=== PATIENT | female | born 1980 | race Caucasian/White ===

== ENCOUNTER 2017-05-07 15:54 | Observation (INO) | payer OTHER ==
[~2017-05-07] VITALS: Ht 157.5 cm; Wt 97.5 kg
[~2017-05-07 15:54] MED LIST: ADVIN10/60 INH; ALBU1AER9 INH; ALL180 PO; DPPI400; EPP3 IM; FLXHP PO; GABA1CAP4 PO; HYOS1TAB SL; MELO15TA4 PO; SUMA50TA15 PO; ULT50HP PO; [UNRECOGNIZED DRUG - CODE] OPB
[2017-05-07] MEDS ORDERED: SODIUM CHLORIDE 0.9% 1000ML 1,000 ML IV STA (16:15)
[2017-05-07] MEDS ORDERED: HYDROmorphone INJ 1 MG/ML SYR IV STA (16:15)
[2017-05-07] MEDS ORDERED: ONDANSETRON INJ 2 MG/ML 2 ML VIAL IV STA (16:15)
[2017-05-07] MEDS ORDERED: ADVIN10/60 INH (16:45)
[2017-05-07] MEDS ORDERED: EPP3/2 IM (16:45)
[2017-05-07] MEDS ORDERED: ALBU18002 INH (16:45)
[2017-05-07 17:05] LABS: URINE APPEARANCE TURBID (CLEAR); URINE COLOR DK YELLOW; URINE EPITHELIAL CELL AUTO >30 /lpf (0-5); URINE NITRITE NEG (NEG); URINE SPECIFIC GRAVITY 1.034 (1.000-1.030); UROBILINOGEN NEG (NEG); ZZUR CULT IF INDIC CLEAN CATCH YES
[2017-05-07 17:07] LABS: MANUAL MICROSCOPIC REQUIRED? NO; REVIEW REQ? YES
[2017-05-07 17:09] LABS: URINE BILIRUBIN NEG (NEG)
[2017-05-07 17:09] LABS: BASO % 0.1 %; BASO ABS # 0.02 K/uL (0-0.2); COMPLETE YES; EOS % 0.5 %; HEMATOCRIT 47.7 % (37-47); IG% 0.3 %; LYMPH % 14.8 %; LYMPH ABS # 2.04 K/uL (1.2-3.4); MEAN CORPUSCULAR HEMOGLOBIN 30.4 pg (25-34); MEAN CORPUSCULAR HGB CONC 34.2 g/dl (32-36); MEAN PLATELET VOLUME 8.7 fL (7.4-10.4); MONO % 7.8 %; NEUT % 76.5 %; PLATELET COUNT 312 K/uL (130-400); RED BLOOD COUNT 5.36 M/uL (4.2-5.4)
[2017-05-07 17:31] LABS: BUN/CREATININE RATIO 10.9 (10-20); CALCIUM 9.3 mg/dl (8.5-10.1); CREATININE 0.76 mg/dl (0.60-1.20); POTASSIUM 3.5 mmol/L (3.5-5.1)
[2017-05-07 17:33] LABS: ALB/GLOB RATIO 0.7 (0.9-2)
--- NOTE | 2017-05-07 18:13 | EMERGENCY ROOM VISIT NOTE ---
History First contact with patient: 16:05 Chief Complaint: ABDOMINAL PAIN Stated Complaint: ABDOMINAL PAIN Nursing Triage Summary: low grade temp and rlq pain for 2 days History of Present Illness The patient is a 37 year old female who presents to the Emergency Room with complaints of abdominal pain 2 days. The patient states that she has had pain in the right side of her abdomen for the past 2 days. She states the pain has been gradually worsening. She rates the discomfort a 9/10. She has been taking Tylenol without relief. The patient has not noticed fevers at home, but was told at urgent care that she did have a fever. She was seen there prior to coming here and instructed to come here for further evaluation. She reports a history of a cholecystectomy but denies other abdominal surgery. She denies nausea/vomiting, urinary symptoms or changes in bowel movements. She denies melena, hematochezia, chest pain or shortness of breath. Review of Systems A complete 10 point review of systems was reviewed with the patient with pertinent positives and negatives as per history of present illness. All else were negative. Past Medical/Surgical History Medical Problems: (1) Appendicitis Social History Smoking Status: Never Smoker Housing Status: lives with family Occupation Status: employed Current/Historical Medications Scheduled PRN Albuterol Sulfate (Proair Respiclick), 2 PUFFS INH Q4H PRN for SOB/Wheezing Epinephrine (Epipen), 0.3 MG IM UD PRN for ALLERGIC REACTION Fluticasone Prop/Salmeterol (Advair Diskus 100/50 60 Dose), 1 PUFF INH BID PRN for SOB/Wheezing Hydrocodone/Acetaminophen 5MG/325MG ([place] 5MG/325MG), 1-2 TABLET PO Q4H PRN for Pain Allergies Coded Allergies: Morphine (Verified Allergy, Intermediate, Skin feels like its crawling, ) BEE STING (Verified Allergy, Unknown, ., 02/27/11) Benzonatate (Verified Allergy, Unknown, ., 02/27/11) Physical Exam Vital Signs Date Time Temp Pulse Resp B/P (MAP) Pulse Ox O2 Delivery O2 Flow Rate FiO2 05/07/17 23:10 100 14 144/97 95 Oxymask 3 05/07/17 23:00 97 14 142/109 93 Oxymask 3 05/07/17 22:50 36.4 90 14 167/112 93 Oxymask 3 05/07/17 22:40 84 16 168/109 93 Oxymask 3 05/07/17 22:30 82 14 168/106 93 Oxymask 3 05/07/17 22:20 95 16 170/115 95 Oxymask 5 05/07/17 22:10 96 16 176/118 94 Oxymask 5 05/07/17 22:03 36.6 108 20 174/112 96 Oxymask 10 05/07/17 20:25 120 18 150/116 95 Room Air 05/07/17 18:21 106 17 159/106 94 Room Air 05/07/17 15:58 37.2 140 20 211/147 96 Room Air Physical Exam VITALS: Vitals are noted on the nurse's note and reviewed by myself. Vital signs stable. GENERAL: This is a 37-year-old female, in no acute distress, nondiaphoretic, well-developed well-nourished. HEENT: Normocephalic. PERRLA. EOMI. Mucous membranes moist. Neck is supple without nuchal rigidity. HEART: Regular rate and rhythm without murmurs gallops or rubs. LUNGS: Clear to auscultation bilaterally without wheezes, rales or rhonchi. ABDOMEN: Positive bowel sounds x 4. Soft, mild tenderness in the right upper quadrant and right lower quadrant. No guarding or rebound tenderness. NEURO: Patient was alert and oriented to person place and time. Medical Decision & Procedures ER Provider Diagnostic Interpretation: CT OF THE ABDOMEN AND PELVIS WITH CONTRAST CLINICAL HISTORY: Right-sided abdominal pain. FINDINGS: Fatty infiltration of the liver is noted. The spleen, adrenal glands, kidneys and pancreas are unremarkable. There is no hydronephrosis. There is no biliary ductal dilatation status post cholecystectomy. There is no evidence for a bowel obstruction. The appendix is mildly dilated, measuring 1 cm. There is moderate periappendiceal infiltration. There is no free air or abscess. A dominant follicle within left ovary is incidentally noted. No suspicious skeletal lesions are present. There is no lymphadenopathy. There is no pneumatosis, free air or portal venous gas. There is borderline cardiomegaly. IMPRESSION: 1. Acute appendicitis. No free air or abscess. 2. Fatty liver. 3. Borderline cardiomegaly. Laboratory Results 05/07/17 16:58 Red Blood Count 5.36, Mean Corpuscular Volume 89.0, Mean Corpuscular Hemoglobin 30.4, Mean Corpuscular Hemoglobin Concent 34.2, Mean Platelet Volume 8.7, Neutrophils (%) (Auto) 76.5, Lymphocytes (%) (Auto) 14.8, Monocytes (%) (Auto) 7.8, Eosinophils (%) (Auto) 0.5, Basophils (%) (Auto) 0.1, Neutrophils # (Auto) 10.56, Lymphocytes # (Auto) 2.04, Monocytes # (Auto) 1.07, Eosinophils # (Auto) 0.07, Basophils # (Auto) 0.02 05/07/17 16:58 Test 05/07/17 16:40 05/07/17 16:58 Urine Color DK YELLOW Urine Appearance TURBID (CLEAR) Urine pH 5.0 (4.5-7.5) Urine Specific [place] 1.034 (1.000-1.030) Urine Protein 2+ (NEG) Urine Glucose (UA) NEG (NEG) Urine Ketones 1+ (NEG) Urine Occult Blood 1+ (NEG) Urine Nitrite NEG (NEG) Urine Bilirubin NEG (NEG) Urine Urobilinogen NEG (NEG) Urine Leukocyte Esterase SMALL (NEG) Urine WBC (Auto) >30 /hpf (0-5) Urine RBC (Auto) 0-4 /hpf (0-4) Urine Hyaline Casts (Auto) 5-10 /lpf (0-5) Urine Epithelial Cells (Auto) >30 /lpf (0-5) Urine Bacteria (Auto) 3+ (NEG) Urine Crystals CALCIUM OXALATE (NONE Urine Pathogenic Casts /lpf (0) Urine Yeast (Auto) PRESENT (NONE PRSENT) Urine Test NEG (NEG) White Blood Count 13.80 K/uL (4.8-10.8) Red Blood Count 5.36 M/uL (4.2-5.4) Hemoglobin 16.3 g/dL (12.0-16.0) Hematocrit 47.7 % (37-47) Mean Corpuscular Volume 89.0 fL (80-100) Mean Corpuscular Hemoglobin 30.4 pg (25-34) Mean Corpuscular Hemoglobin Concent 34.2 g/dl (32-36) Platelet Count 312 K/uL (130-400) Mean Platelet Volume 8.7 fL (7.4-10.4) Neutrophils (%) (Auto) 76.5 % Lymphocytes (%) (Auto) 14.8 % Monocytes (%) (Auto) 7.8 % Eosinophils (%) (Auto) 0.5 % Basophils (%) (Auto) 0.1 % Neutrophils # (Auto) 10.56 K/uL (1.4-6.5) Lymphocytes # (Auto) 2.04 K/uL (1.2-3.4) Monocytes # (Auto) 1.07 K/uL (0.11-0.59) Eosinophils # (Auto) 0.07 K/uL (0-0.5) Basophils # (Auto) 0.02 K/uL (0-0.2) RDW Standard Deviation 41.9 fL (36.4-46.3) RDW Coefficient of Variation 12.9 % (11.5-14.5) Immature Granulocyte % (Auto) 0.3 % Immature Granulocyte # (Auto) 0.04 K/uL (0.00-0.02) Anion Gap 7.0 mmol/L (3-11) Est Creatinine Clear Calc Drug Dose 112.7 ml/min Estimated GFR () 117.8 Estimated GFR (Non- 101.6 BUN/Creatinine Ratio 10.9 (10-20) Calcium Level 9.3 mg/dl (8.5-10.1) Total Bilirubin 1.5 mg/dl (0.2-1) Aspartate Amino Transf (AST/SGOT) 18 U/L (15-37) Alanine Aminotransferase (ALT/SGPT) 43 U/L (12-78) Alkaline Phosphatase 112 U/L (45-117) Total Protein 8.4 gm/dl (6.4-8.2) Albumin 3.6 gm/dl (3.4-5.0) Globulin 4.8 gm/dl (2.5-4.0) Albumin/Globulin Ratio 0.7 (0.9-2) Lipase 107 U/L (73-393) Medications Administered Medications (Trade) Dose Ordered Sig/Kathy Route Start Time Stop Time Status Last Admin Dose Admin Sodium Chloride 1,000 ml @ 999 mls/hr Q1H1M STAT IV 05/07/17 16:15 05/07/17 17:15 DC 05/07/17 17:18 999 MLS/HR Ondansetron HCl (Zofran Inj) 4 mg NOW STAT IV 05/07/17 16:15 05/07/17 16:18 DC 05/07/17 17:18 4 MG Hydromorphone HCl (Dilaudid Inj) 1 mg NOW STAT IV 05/07/17 16:15 05/07/17 16:18 DC 05/07/17 17:19 1 MG Bupivacaine HCl/ Epinephrine Bitart (Sensorcaine/ Epinephrine 0.5% Mpf 1:200,000) 30 ml STK-MED ONCE .ROUTE 05/07/17 20:52 05/07/17 20:53 DC 05/07/17 20:52 10 ML Hydralazine HCl (HydrALAZINE INJ) 20 mg STK-MED ONCE .ROUTE 05/07/17 22:39 05/07/17 22:40 DC 05/07/17 22:40 10 MG ED Course The patient was evaluated as above. Labs were drawn and IV access was obtained. Patient was medicated with 1 L normal saline solution, 1 mg Dilaudid and [address] of the abdomen and pelvis was performed and read by radiology as above. Patient was reevaluated and findings were discussed. Case was discussed with Dr. De Jesus, the on-call general surgeon. He will take the patient to the OR. Discharge instructions were reviewed with the patient. The patient verbalized understanding of my assessment and treatment plan and was discharged home in good condition. Medical Decision Differential diagnosis includes appendicitis, cholecystitis, gastroenteritis, colitis, ovarian cyst, ovarian torsion, among others. The patient is a 37-year-old female who presents today complaining of right lower quadrant pain. Labs revealed a leukocytosis of 13.8. Urinalysis was suggestive of contamination versus infection and will be sent for culture. Urine was negative. CT of the abdomen and pelvis shows acute appendicitis without complications. Gen. surgery was consulted. Dr. De Jesus will take the patient to the operating room. Medication reconciliation: I attest that I have personally reviewed the patient 's current medication list. Blood Pressure Screening: Patient was found to have a slightly elevated blood pressure due to circumstances. I do not believe that the patient requires hypertension monitoring. Impression Primary Impression: Acute appendicitis Departure Information Prescriptions Hydrocodone/Acetaminophen 5MG/325MG ([place] 5MG/325MG) Tab 1-2 TABLET PO Q4H Y for Pain, #30 TAB Prov: Jagdeep De Jesus D.O. 05/07/17 Referrals Oseas Wooten M.D. (PCP) Patient Instructions My [facility] Problem Qualifiers Primary Impression: Acute appendicitis
[2017-05-07] MEDS ORDERED: OPTIRAY 320 IV PRN (19:00)
--- NOTE | 2017-05-07 19:06 | DIAGNOSTIC IMAGING REPORT ---
CT OF THE ABDOMEN AND PELVIS WITH CONTRAST CLINICAL HISTORY: Right-sided abdominal pain. COMPARISON STUDY: Right upper quadrant ultrasound January 20, 2011. TECHNIQUE: Following IV administration of 118 mL of Optiray-320, axial images of the abdomen and pelvis were obtained from the lung bases to the proximal femurs. Images were reviewed in the axial, sagittal, and coronal planes. IV contrast was administered without complication. A dose lowering technique was utilized adhering to the principles of ALARA. CT DOSE: 1543.09 mGy.cm FINDINGS: Fatty infiltration of the liver is noted. The spleen, adrenal glands, kidneys and pancreas are unremarkable. There is no hydronephrosis. There is no biliary ductal dilatation status post cholecystectomy. There is no evidence for a bowel obstruction. The appendix is mildly dilated, measuring 1 cm. There is moderate periappendiceal infiltration. There is no free air or abscess. A dominant follicle within left ovary is incidentally noted. No suspicious skeletal lesions are present. There is no lymphadenopathy. There is no pneumatosis, free air or portal venous gas. There is borderline cardiomegaly. IMPRESSION: 1. Acute appendicitis. No free air or abscess. 2. Fatty liver. 3. Borderline cardiomegaly. Electronically signed by: Dario Ramirez M.D. 05/07/2017 7:04 PM Dictated Date/Time: 05/07/2017 6:58 PM
[2017-05-07] MEDS ORDERED: HYDROmorphone INJ 2 MG/ML SYR/VIAL IV PRN (20:00)
[2017-05-07] MEDS ORDERED: LABETALOL HCL IV 5 MG/ML 20ML IV PRN (20:00)
[2017-05-07] MEDS ORDERED: ATROPINE SULFATE 0.1 MG/ML 5ML SYR IV PRN (20:00)
[2017-05-07] MEDS ORDERED: NALOXONE HCL 0.4 MG/1 ML VIAL/CARP IV PRN (20:00)
[2017-05-07] MEDS ORDERED: MEPERIDINE HCL 25 MG/ML CARP IV PRN (20:00)
[2017-05-07] MEDS ORDERED: EpHEDrine SULFATE INJ 50 MG/ML AMP IV PRN (20:00)
[2017-05-07] MEDS ORDERED: ONDANSETRON INJ 2 MG/ML 2 ML VIAL IV PRN ×2 (20:00→21:45)
[2017-05-07] MEDS ORDERED: FENTANYL CITRATE INJ 50 MCG/1 ML 2 ML VIAL IV PRN (20:00)
[2017-05-07] MEDS ORDERED: FLUMAZENIL 0.1 MG/1 ML 10 ML VIAL IV PRN (20:00)
[2017-05-07] MEDS ORDERED: PHENYLEPHRINE 100MCG/ML 5ML SYR IV PRN (20:00)
--- NOTE | 2017-05-07 20:02 | History and Physical ---
History & Physical Date May 07, 2017. Chief Complaint pt with abdominal pain for approx 24 hours. progressed to RLQ. History of Present Illness The patient is a 37 year old female with complaints of Past Medical/Surgical History karl ; arm fracture Additional History Hepatic Disease: No Endocrine Disorder: No Kidney Disease: No Hypertension: No Heart Disease: No Bleeding Tendencies: No Infectious Diseases: No Allergies Coded Allergies: Morphine (Verified Allergy, Intermediate, Skin feels like its crawling, ) BEE STING (Verified Allergy, Unknown, ., 02/27/11) Benzonatate (Verified Allergy, Unknown, ., 02/27/11) Home Medications Scheduled PRN Albuterol Sulfate (Proair Respiclick), 2 PUFFS INH Q4H PRN for SOB/Wheezing Epinephrine (Epipen), 0.3 MG IM UD PRN for ALLERGIC REACTION Fluticasone Prop/Salmeterol (Advair Diskus 100/50 60 Dose), 1 PUFF INH BID PRN for SOB/Wheezing Physical Examination Skin: warm/dry Eyes: normal inspection, EOMI ENT: normal ENT inspection Head: normocephalic Neck: supple Respiratory/Chest: normal breath sounds, no respiratory distress Cardiovascular: regular rate, rhythm Abdomen / GI: + pertinent finding (+RLQ pain with rebound and guarding) Neurologic/Psych: alert, oriented x 3 Diagnosis acute appendicitis discussed risks ( bleeding/infection/blood clots/injury to other organs etc...) answered questions. to OR tonevan for lap appy.
[2017-05-07] MEDS ORDERED: FENTANYL CITRATE INJ 50 MCG/1 ML 2 ML VIAL ONE ×2 (20:29→21:08)
[2017-05-07] MEDS ORDERED: MIDAZOLAM HCL 1 MG/ML 2ML VIAL ONE (20:29)
[2017-05-07] MEDS ORDERED: HYDR-5688 PO (20:47)
[2017-05-07] MEDS ORDERED: BUPIVACAINE/EPINEPHRINE 0.5% MPF 1:200,000 10 ML VIAL ONE (20:52)
[2017-05-07] MEDS ORDERED: ESMOLOL HCL 10 MG/ML 10 ML VIAL ONE (21:10)
[2017-05-07] MEDS ORDERED: SUCCINYLCHOLINE CHLORIDE 20 MG/ML 10 ML VIAL IV ONE (21:11)
[2017-05-07] MEDS ORDERED: ROCURONIUM BROMIDE 10 MG/ML 5 ML VIAL ONE (21:11)
[2017-05-07] MEDS ORDERED: PROPOFOL IV EMULSION 10 MG/ML 20 ML VIAL IV ONE (21:11)
[2017-05-07] MEDS ORDERED: NEOSTIGMINE METHYLSULFATE 5 MG/5 ML SYR ONE (21:11)
[2017-05-07] MEDS ORDERED: GLYCOPYRROLATE INJ 0.2 MG/ML VIAL ONE ×2 (21:11→21:24)
[2017-05-07] MEDS ORDERED: LIDOCAINE HCL 2% 2 ML VIAL (20MG/ML) ONE (21:11)
[2017-05-07] MEDS ORDERED: KETOROLAC TROMETHAMINE 30 MG/ML VIAL ONE (21:23)
[2017-05-07] MEDS ORDERED: HYDROmorphone INJ 0.5 MG/0.5 ML SYR IV PRN (21:45)
[2017-05-07] MEDS ORDERED: IBUPROFEN 600 MG TAB PO PRN (21:45)
[2017-05-07] MEDS ORDERED: HYDROCODONE/ACETAMOPHEN 5/325MG TAB PO PRN ×2 (21:45)
[2017-05-07] MEDS ORDERED: HYDROmorphone INJ 1 MG/ML SYR IV PRN (21:45)
--- NOTE | 2017-05-07 21:55 | [facility] Operative Report ---
Operative Report Operative Date May 07, 2017. Pre-Operative Diagnosis Acute Appendicitis Post-Operative Diagnosis Acute Appendicitis Procedure(s) Performed Laparoscopic Appendectomy Surgeon Dr. De Jesus Estimated Blood Loss 10ml Findings acutely inflammed appendix Specimens A. Appendix Anesthesia get Disposition Recovery Room / PACU Description of Procedure After informed consent was obtained the patient was taken to the operating suite placed in a supine position. After successful intubation the abdomen was sterilely prepped and draped in usual fashion. An infraumbilical incision was made with an 11 blade scalpel and carried down through the soft tissue using electrocautery. The anterior rectus fascia was opened using electrocautery and 2 #0 Vicryl stay sutures were placed. Peritoneum was elevated with hemostats and incised under direct vision using a Metzenbaum scissor. A finger sweep was performed and a 12 mm [place] trocar was placed. The abdomen and was insufflated to 20 mmHg. The Laparoscope was inserted and the abdomen examined 360. We placed a suprapubic 5 mm port and a left lower quadrant 12 mm port. The patient was placed in a slight Trendelenburg position and airplaned to the left. We looked in the right lower quadrant and immediately found an acutely inflamed appendix. There was no evidence of perforation no free fluid etc. I was able to peel it away from the right pelvic side wall and elevated it. A [place] dissector was used to create a small window in the meso- appendix and a ELI purple cartridge linear stapler was used to transect the appendix at its junction with the cecum. In similar fashion a 60 mm truong cartridge was then used to transect the meso- appendix. We thoroughly irrigated the right lower quadrant as well as the pelvis. There was adequate hemostasis at the end of the procedure. We did look around the remainder of the abdomen. I counted backwards on the small bowel for about 3-4 feet from the ileocecal valve and saw no gross abnormality. The remainder the organs appeared normal as well. The appendix was placed into an Endo Catch bag and removed from the camera port site. All the trochars were subsequently removed and the abdomen desufflated. The fascia of the camera port was closed using 0 Vicryl in a [id number] fashion. All the wounds were irrigated and closed using 4-0 Monocryl. Marcaine was injected around the incisions for postoperative analgesia and skin glue used as a dressing. The patient was awaken extubated and transferred recovery in stable condition I attest to the content of the Intraoperative Record and any orders documented therein. Any exceptions are noted below.
--- NOTE | 2017-05-07 22:09 | Discharge Instructions ---
Discharge Instructions Date of Service May 07, 2017. Admission Reason for Admission: Abdominal Pain Discharge Discharge Diagnosis / Problem: acute appendicitis Discharge Goals Goal(s): Decrease discomfort Activity Recommendations Activity Limitations: as noted below Lifting Limitations: no more than 10 pounds Exercise/Sports Limitations: until after follow-up appointment May Resume Sexual Activity: after follow-up appointment Shower/Bathe: no limitations . Instructions / Follow-Up Instructions / Follow-Up call [phone] to schedule a follow up appointment with Dr. De Jesus within 1 -2 weeks or if you have any problems or questions. Current Hospital Diet Patient's current hospital diet: Clear Liquid Diet Discharge Diet Recommended Diet: Regular Diet Procedures Procedures Performed: Laparoscopic Appendectomy Pending Studies Studies pending at discharge: yes List of pending studies: pathology Medical Emergencies . Who to Call and When: Medical Emergencies: If at any time you feel your situation is an emergency, please call 911 immediately. . Non-Emergent Contact Non-Emergency issues call your: Primary Care Provider, Surgeon Call Non-Emergent contact if: temperature is above 101, wound has increased drainage, wound has increased redness, wound has increased pain . "Provider Documentation" section prepared by Jagdeep De Jesus. . VTE Core Measure Inpt VTE Proph given/why not?: SCD's
[2017-05-07] MEDS ORDERED: LABETALOL HCL IV 5 MG/ML 20ML IV ONE (22:22)
[2017-05-07] MEDS ORDERED: NURSING VERBAL MED ORDER ONE ×2 (22:30→22:45)
[2017-05-07] MEDS ORDERED: HydrALAZINE HCL 20 MG/ML VIAL ONE (22:39)
[2017-05-07] MEDS ORDERED: IV FLUIDS COMPLETED PRN (23:00)
--- NOTE | 2017-05-07 23:03 | Anesthesiology Progress Note ---
Anesthesia Post Op Note Date & Time May 07, 2017 at 23:00 Vital Signs Pain Intensity: 0 Vital Signs Past 12 Hours Date Time Temp Pulse Resp B/P (MAP) Pulse Ox O2 Delivery O2 Flow Rate FiO2 05/07/17 22:50 36.4 90 14 167/112 93 Oxymask 3 05/07/17 22:40 84 16 168/109 93 Oxymask 3 05/07/17 22:30 82 14 168/106 93 Oxymask 3 05/07/17 22:20 95 16 170/115 95 Oxymask 5 05/07/17 22:10 96 16 176/118 94 Oxymask 5 05/07/17 22:03 36.6 108 20 174/112 96 Oxymask 10 05/07/17 20:25 120 18 150/116 95 Room Air 05/07/17 18:21 106 17 159/106 94 Room Air 05/07/17 15:58 37.2 140 20 211/147 96 Room Air Notes Mental Status: alert / awake / arousable, participated in evaluation Pt Amnestic to Procedure: Yes Nausea / Vomiting: adequately controlled Pain: adequately controlled Airway Patency, RR, SpO2: stable & adequate BP & HR: stable & adequate, see Notes Hydration State: stable & adequate Anesthetic Complications: no major complications apparent The patient did well. She was hypertensive preoperatively as well as in the PACU. Her blood pressure was treated with labetalol and hydralazine in recovery and is now at his baseline.
[2017-05-07] MEDS ORDERED: DEXAMETHASONE SOD INJ 4 MG/ML VIAL ONE (23:07)
[2017-05-07] MEDS ORDERED: ONDANSETRON INJ 2 MG/ML 2 ML VIAL ONE (23:07)
[2017-05-07 23:15] VITALS: BP 132/84; PULSE 112; TEMP 36.9; O2SAT 94; Ht 157.5 cm; Wt 97.5 kg
[2017-05-07 23:45] VITALS: BP 128/98; PULSE 112; TEMP 36.8; O2SAT 93
[2017-05-07] MEDS ORDERED: CEFAZOLIN SOD 1 GM VIAL ONE (23:51)
[2017-05-08] VITALS (8 sets, daily range): BP systolic 127–138; BP diastolic 82–90; PULSE 108–122; TEMP 36.7–36.8; O2SAT 93–94
[2017-05-08] MEDS: LACTATED RINGER'S 1000ML 1,000 ML IV SCH ×2 (00:44→04:32)
[2017-05-08 07:02] LABS: BASO % 0.1 %; BASO ABS # 0.01 K/uL (0-0.2); COMPLETE YES; HEMATOCRIT 42.4 % (37-47); IG% 0.3 %; LYMPH % 5.7 %; LYMPH ABS # 0.89 K/uL (1.2-3.4); MEAN CELL VOLUME 90.8 fL (80-100); MEAN CORPUSCULAR HEMOGLOBIN 31.5 pg (25-34); MEAN CORPUSCULAR HGB CONC 34.7 g/dl (32-36); MEAN PLATELET VOLUME 9.1 fL (7.4-10.4); MONO % 3.5 %; NEUT % 90.4 %; PLATELET COUNT 343 K/uL (130-400); RED BLOOD COUNT 4.67 M/uL (4.2-5.4); WHITE BLOOD COUNT 15.64 K/uL (4.8-10.8)
[2017-05-08 07:31] LABS: BUN/CREATININE RATIO 6.6 (10-20); CALCIUM 8.7 mg/dl (8.5-10.1); CREATININE 0.8 mg/dl (0.60-1.20); POTASSIUM 3.5 mmol/L (3.5-5.1)
[2017-05-08 07:43] LABS: ALB/GLOB RATIO 0.7 (0.9-2)
[2017-05-08] MEDS ORDERED: CEFEPIME IV 2,000 MG in DEXTROSE 5% 100ML 100 ML IV SCH (08:00)
--- NOTE | 2017-05-08 09:09 | Surgery Progress Note ---
Surgery Progress Note Date of Service May 08, 2017. Subjective Post OP Day: 1 + feeling well pre-op pain gone/feeling well. hungry Objective Vital Signs: Date Time Temp Pulse Resp B/P (MAP) Pulse Ox O2 Delivery O2 Flow Rate FiO2 05/08/17 08:00 94 Room Air 2.0 05/08/17 07:22 36.8 110 18 127/82 (97) 94 Room Air 05/08/17 05:41 108 05/08/17 03:35 118 05/08/17 02:14 36.7 122 16 129/90 (103) 93 Room Air 05/08/17 01:08 36.7 119 16 130/85 (100) 94 Room Air 05/08/17 00:15 36.8 115 16 138/87 (104) 94 Room Air 05/07/17 23:45 36.8 112 16 128/98 (108) 93 Room Air 05/07/17 23:15 Nasal Cannula 2.0 05/07/17 23:15 94 Nasal Cannula 2.0 05/07/17 23:15 36.9 112 18 132/84 94 Nasal Cannula 2.0 05/07/17 23:10 100 14 144/97 95 Oxymask 3 05/07/17 23:00 97 14 142/109 93 Oxymask 3 05/07/17 22:50 36.4 90 14 167/112 93 Oxymask 3 05/07/17 22:40 84 16 168/109 93 Oxymask 3 05/07/17 22:30 82 14 168/106 93 Oxymask 3 05/07/17 22:20 95 16 170/115 95 Oxymask 5 05/07/17 22:10 96 16 176/118 94 Oxymask 5 05/07/17 22:03 36.6 108 20 174/112 96 Oxymask 10 05/07/17 20:25 120 18 150/116 95 Room Air 05/07/17 18:21 106 17 159/106 94 Room Air 05/07/17 15:58 37.2 140 20 211/147 96 Room Air General Appearance: no apparent distress Abdomen: non distended, soft Incision(s): clean, dry, intact Laboratory Results: Results Past 24 Hours Test 05/07/17 16:40 05/07/17 16:58 05/08/17 06:17 Range/Units Urine Color DK YELLOW Urine Appearance TURBID CLEAR Urine pH 5.0 4.5-7.5 Urine Specific [place] 1.034 1.000-1.030 Urine Protein 2+ NEG Urine Glucose (UA) NEG NEG Urine Ketones 1+ NEG Urine Occult Blood 1+ NEG Urine Nitrite NEG NEG Urine Bilirubin NEG NEG Urine Urobilinogen NEG NEG Urine Leukocyte Esterase SMALL NEG Urine WBC (Auto) >30 0-5 /hpf Urine RBC (Auto) 0-4 0-4 /hpf Urine Hyaline Casts (Auto) 5-10 0-5 /lpf Urine Epithelial Cells (Auto) >30 0-5 /lpf Urine Bacteria (Auto) 3+ NEG Urine Crystals CALCIUM OXALATE NONE PRSENT Urine Pathogenic Casts 0 /lpf Urine Yeast (Auto) PRESENT NONE PRSENT Urine Test NEG NEG White Blood Count 13.80 15.64 4.8-10.8 K/uL Red Blood Count 5.36 4.67 4.2-5.4 M/uL Hemoglobin 16.3 14.7 12.0-16.0 g/dL Hematocrit 47.7 42.4 37-47 % Mean Corpuscular Volume 89.0 90.8 80-100 fL Mean Corpuscular Hemoglobin 30.4 31.5 25-34 pg Mean Corpuscular Hemoglobin Concent 34.2 34.7 32-36 g/dl Platelet Count 312 343 130-400 K/uL Mean Platelet Volume 8.7 9.1 7.4-10.4 fL Neutrophils (%) (Auto) 76.5 90.4 % Lymphocytes (%) (Auto) 14.8 5.7 % Monocytes (%) (Auto) 7.8 3.5 % Eosinophils (%) (Auto) 0.5 0.0 % Basophils (%) (Auto) 0.1 0.1 % Neutrophils # (Auto) 10.56 14.16 1.4-6.5 K/uL Lymphocytes # (Auto) 2.04 0.89 1.2-3.4 K/uL Monocytes # (Auto) 1.07 0.54 0.11-0.59 K/uL Eosinophils # (Auto) 0.07 0.00 0-0.5 K/uL Basophils # (Auto) 0.02 0.01 0-0.2 K/uL RDW Standard Deviation 41.9 43.8 36.4-46.3 fL RDW Coefficient of Variation 12.9 13.4 11.5-14.5 % Immature Granulocyte % (Auto) 0.3 0.3 % Immature Granulocyte # (Auto) 0.04 0.04 0.00-0.02 K/uL Sodium Level 141 138 136-145 mmol/L Potassium Level 3.5 3.5 3.5-5.1 mmol/L Chloride Level 108 106 98-107 mmol/L Carbon Dioxide Level 26 22 21-32 mmol/L Anion Gap 7.0 10.0 3-11 mmol/L Blood Urea Nitrogen 8 5 7-18 mg/dl Creatinine 0.76 0.80 0.60-1.20 mg/dl Est Creatinine Clear Calc Drug Dose 112.7 107.0 ml/min Estimated GFR () 117.8 110.7 Estimated GFR (Non- 101.6 95.5 BUN/Creatinine Ratio 10.9 6.6 10-20 Random Glucose 98 163 70-99 mg/dl Calcium Level 9.3 8.7 8.5-10.1 mg/dl Total Bilirubin 1.5 0.8 0.2-1 mg/dl Aspartate Amino Transf (AST/SGOT) 18 25 15-37 U/L Alanine Aminotransferase (ALT/SGPT) 43 50 12-78 U/L Alkaline Phosphatase 112 91 45-117 U/L Total Protein 8.4 7.4 6.4-8.2 gm/dl Albumin 3.6 3.0 3.4-5.0 gm/dl Globulin 4.8 4.4 2.5-4.0 gm/dl Albumin/Globulin Ratio 0.7 0.7 0.9-2 Lipase 107 73-393 U/L Microbiology Results 05/07/17 Urine Culture, Received Pending Assessment & Plan POD 1 lap appy doing well ok for d/c. instructions given
--- NOTE | 2017-05-12 11:21 | Discharge Summary ---
Discharge Summary Date of Service May 12, 2017. Admission Date/Reason May 07, 2017 at 21:49 Appendicitis. Discharge Date/Disposition May 08, 2017 Home Diagnosis Principal Diagnosis: Acute appendicitis Procedure(s) Performed Laparoscopic appendectomy Medication Reconciliation New Medications: Hydrocodone/Acetaminophen 5MG/325MG ([place] 5MG/325MG) Tab 1-2 TABLET PO Q4H PRN for Pain, #30 TAB Continued Medications: Albuterol Sulfate (Proair Respiclick) 108 Mcg/Act Aer 2 PUFFS INH Q4H PRN for SOB/Wheezing Epinephrine (Epipen) 0.3 Mg/0.3 Ml Inj 0.3 MG IM UD PRN for ALLERGIC REACTION, BOX Fluticasone Prop/Salmeterol (Advair Diskus 100/50 60 Dose) 1 Ea Aerp 1 PUFF INH BID PRN for SOB/Wheezing, INHALER Admission Physical Exam As per Admitting History & Physical. Hospital Course 37 y/o female presented to ED with 2 days history of abdominal pain localizing to RLQ. White count was 13,[address] was consistent with appendicitis. She was taken to the OR for laparoscopic appendectomy. She was transferred to the floor for overnight observation. The next day was tolerating diet and analgesics. Her abdomen was benign. She was stable for discharge. Discharge Instructions Follow-up with Dr. De Jesus in 2 weeks Please refer to the electronic Patient Visit Report (Discharge Instructions) for additional information.
== END 2017-05-08 11:37 | disposition home or self-care (01) ==
LOC: C.EDB 15:57 → C.MSW 21:49 → ENRESERV 22:34
PROVIDERS: ADMIT Surgery; ATTEND Surgery
DX: K35.3 Acute appendicitis with localized peritonitis (principal)

== ENCOUNTER 2018-01-31 21:54 | Emergency (ER) | payer OTHER ==
[~2018-01-31] VITALS: Ht 157.5 cm; Wt 100.2 kg
[~2018-01-31 21:54] MED LIST changes: +ALBU18002 INH; -ALBU1AER9 INH; -ALL180 PO; -DPPI400; -EPP3 IM; +EPP3/2 IM; -FLXHP PO; -GABA1CAP4 PO; -HYOS1TAB SL; -MELO15TA4 PO; -SUMA50TA15 PO; -ULT50HP PO; -[UNRECOGNIZED DRUG - CODE] OPB
[2018-01-31 21:57] VITALS: TEMP 36.7; Ht 157.5 cm; Wt 100.2 kg
[2018-01-31] MEDS ORDERED: CYCLOBENZAPRINE HCL 5 MG TAB PO STA (22:13)
[2018-01-31] MEDS ORDERED: METHYLPREDNISOLONE 16 MG TAB PO STA (22:13)
[2018-01-31] MEDS ORDERED: KETOROLAC TROMETHAMINE 60 MG/2 ML VIAL IM STA (22:13)
[2018-01-31] MEDS ORDERED: ACETAMINOPHEN 500 MG TAB PO STA (22:13)
--- NOTE | 2018-01-31 22:15 | EMERGENCY ROOM VISIT NOTE ---
History Report prepared by Lelo: Bryan Lin Under the Supervision of: Dr. Renan Foote M.D. First contact with patient: 21:59 Chief Complaint: BACK PAIN Stated Complaint: BACK PAIN History of Present Illness The patient is a 37 year old white female with a past medical history of asthma , appendectomy who presents to the ED with a cc of intermittent, sharp, lower back pain beginning last night. Positive moving and heavy lifting, discomfort radiating to her legs. Negative falling, hurting herself, alcohol use, drug use , tobacco use. Source of History: patient Onset: last night Position: back (lower) Quality: sharp Timing: intermittent Note: Associated symptoms: pain radiating to her legs Denies: falling, hurting herself Review of Systems See HPI for pertinent positives and negatives. A total of ten systems were reviewed and were otherwise negative. Past Medical & Surgical Medical Problems: (1) Appendicitis (2) Asthma Surgical Problems: (1) History of appendectomy Family History Patient reports no known family medical history. Social History Smoking Status: Never Smoker Smokeless Tobacco Use: No Alcohol Use: none Drug Use: none Marital Status: Housing Status: lives with family Occupation Status: employed Current/Historical Medications Scheduled Amlodipine (Norvasc), 5 MG PO DAILY Methylprednisolone (Medrol Dosepak), 1 PKT PO UD Scheduled PRN Albuterol Sulfate (Proair Respiclick), 2 PUFFS INH Q4H PRN for SOB/Wheezing Epinephrine (Epipen), 0.3 MG IM UD PRN for ALLERGIC REACTION Fluticasone Prop/Salmeterol (Advair Diskus 100/50 60 Dose), 1 PUFF INH BID PRN for SOB/Wheezing Allergies Coded Allergies: Morphine (Verified Allergy, Intermediate, Skin feels like its crawling, ) BEE STING (Verified Allergy, Unknown, ., 01/31/18) Benzonatate (Verified Allergy, Unknown, ., 01/31/18) Physical Exam Vital Signs Date Time Temp Pulse Resp B/P (MAP) Pulse Ox O2 Delivery O2 Flow Rate FiO2 01/31/18 23:35 93 18 164/118 100 01/31/18 22:30 203/132 01/31/18 21:57 36.7 95 18 230/123 100 Room Air Physical Exam GENERAL: Awake, alert, well-appearing, NAD. Piercing to the filtrum, nares, and bilateral ears. HENT: Normocephalic, atraumatic. EYES: Normal conjunctiva. Sclera non-icteric. NECK: Supple. No nuchal rigidity. FROM. RESPIRATORY: CTAB, no rhonchi, wheezing, crackles CARDIAC: RRR, no MRG ABDOMEN: Soft, NTND, BS+ MSK: No chest wall TTP, no LE edema. Mild reproducible lower lumbar and spinal TTP. No step-off or skin changes. NEURO: GCS 15, CN 2-12 intact, moves all 4s on command. Positive SLR for the LLE. Opposite positive SLR for the right. No saddle anesthesia. Neurovascularly intact distally. 5/5 strength of the hips, knees, and ankles. SKIN: No rash or jaundice noted. Medical Decision & Procedures Medications Administered Medications (Trade) Dose Ordered Sig/Kathy Route Start Time Stop Time Status Last Admin Dose Admin Methylprednisolone (Medrol Tab) 16 mg ONE STAT PO 01/31/18 22:13 01/31/18 22:16 DC 01/31/18 22:30 16 MG Ketorolac Tromethamine (Toradol Inj) 60 mg NOW STAT IM 01/31/18 22:13 01/31/18 22:16 DC 01/31/18 22:30 60 MG Cyclobenzaprine HCl (Flexeril Tab) 5 mg ONE STAT PO 01/31/18 22:13 01/31/18 22:16 DC 01/31/18 22:30 5 MG Oxycodone HCl (Roxicodone Immediate Rel 5MG Home Pack) 1 homepack UD ONCE PO 01/31/18 23:30 01/31/18 23:31 DC 01/31/18 23:28 1 HOMEPACK ED Course 2208: The patient was evaluated in room A12B. A complete history and physical exam was performed. 2258: I reevaluated the patient. Discussed results and discharge instructions: she verbalized understanding and agreement. The patient is ready for discharge. Medical Decision Nursing notes reviewed. Ancillary studies and prior records reviewed. The patient is a 37 year old white female with a past medical history of asthma , appendectomy who presents to the ED with a cc of intermittent, sharp, lower back pain beginning last night. Differential diagnosis: Etiologies such as musculoskeletal, disc herniation, fracture, aortic disease, metastatic disease, cord compression, discitis, infection, renal colic, gastrointestinal, acute exacerbation of chronic back pain, sciatica, cauda equina, as well as others were entertained. Patient was seen and evaluated the bedside. Patient did complain of some lower lumbar left-sided back pain. Patient states that she has been doing some heavy lifting as she is planning to move. Patient denies any bowel or bladder incontinence or retention. Patient denies any saddle anesthesia. Patient denies any recent trauma. She denies any fevers, chills, weight loss, and denies any IV drug abuse. She also has no prior history of cancer. She does not have red flag signs for back pain. Thus, no imaging was obtained. Her history and physical exam are more consistent with radiculopathy and possible disc herniation. The patient was given medications. Upon reassessment the patient was feeling improved. Patient was counseled on making sure that she uses good form and should consider the use of a weight belt. She should also consider some light stretching, back exercises, and should not lift heavy weights. She does have persistent symptoms she should follow-up with her PCP and discuss the possibility of physical therapy and/or referral to a specialist. Also of note after the patient's pain was improved her pressure was still persistently high. I did mental health counselor her on physical activity and diet in addition to medication use. She was given a low dose anti- HTN medication. Patient was given strict follow-up, discharge, and return precautions. All questions were answered. Patient was deemed suitable for outpatient follow-up at this time. Patient agreed with the plan of care and was safely discharged home. Medication Reconcilliation Current Medication List: was personally reviewed by me Blood Pressure Screening Patient's blood pressure: Elevated blood pressure Blood pressure disposition: Referred to PCP Impression Primary Impression: Strain of lumbar region Additional Impressions: Sciatica Hypertension Scribe Attestation The scribe's documentation has been prepared under my direction and personally reviewed by me in its entirety. I confirm that the note above accurately reflects all work, treatment, procedures, and medical decision making performed by me. Departure Information Dispostion Home / Self-Care Prescriptions Amlodipine (Norvasc) 5 Mg Tab 5 MG PO DAILY for 30 Days, #30 TAB Prov: Renan Foote M.D. 01/31/18 Methylprednisolone (MEDROL DOSEPAK) 4 Mg [employer] 1 PKT PO UD for 6 Days, #1 PKT Prov: Renan Foote M.D. 01/31/18 Referrals Oseas Wooten M.D. (PCP) Forms HOME CARE DOCUMENTATION FORM, IMPORTANT VISIT INFORMATION Patient Instructions Back Pain - [facility], Back Pain Relieve, ED Low Back Pain Injury, ED Sciatica, [facility] Additional Instructions Please return to the emergency department if you have worsening or recurrent symptoms not amenable to at-home treatment. Please call for a follow-up appointment with her primary care physician. Please take your medications as prescribed. If you have other concerns and/or complaints please feel free to also call your primary care physician's office or return the ED for further evaluation, management, and treatment. You were found to have an elevated blood pressure today (>120 sytolic or >90 diastolic). Per medicare guidelines, you need to follow up with this blood pressure screening with your Primary Care Physician (PCP). For a new PCP call [phone]. You received narcotic or benzodiazepene medication while in the emergency room today. This is an addictive medication that may cause drowziness as well as constipation. Do not drive, operate heavy machinery, or drink alcohol under the influence of this medication. You may take 800 mg Ibuprofen every 6 hours as needed for pain/fever with food. You may take tylenol 1000 mg every 6 hours as needed for pain. You may take motrin and tylenol separately or at the same time. Take your medications as prescribed. Please take your steroids preferably in the morning and with food as they may cause some upset stomach and cause you to be very awake and alert. Consider using a weight belt, do not lift heavy items, consider light stretching as well as light back exercises. If you do have persistent discomfort please follow-up with your PCP and discuss physical therapy and/or referral to a specialist. You have been examined and treated today on an emergency basis only. This is not a substitute for, or an effort to provide, complete comprehensive medical care. It is impossible to recognize and treat all injuries or illnesses in a single emergency department visit. It is therefore important that you follow up closely with [facility], your PCP, and/or your specialist(s). Call as soon as possible for an appointment. Thank you for your time and consideration. I look forward to speaking with you again soon. Please don't hesitate to call us if you have any questions. Problem Qualifiers Primary Impression: Strain of lumbar region Encounter type: initial encounter Qualified Codes: S39.012A - Strain of muscle, fascia and tendon of lower back, initial encounter Additional Impressions: Sciatica Laterality: left Qualified Codes: M54.32 - Sciatica, left side Hypertension Hypertension type: unspecified Qualified Codes: I10 - Essential (primary) hypertension
[2018-01-31] MEDS ORDERED: METH4PAK PO (22:56)
[2018-01-31] MEDS ORDERED: AMLO-110 PO (23:19)
[2018-01-31] MEDS ORDERED: OXYCODONE IR HOME PACK PO ONE (23:30)
[2018-01-31 23:35] VITALS: BP 164/118; PULSE 93; O2SAT 100
== END 2018-01-31 23:35 | disposition home or self-care (01) ==
LOC: C.EDB 21:55 → C.EDA 23:35
DX: S39.012A Strain of muscle, fascia and tendon of lower back, initial encounter (principal); X50.0XXA Overexertion from strenuous movement or load, initial encounter; Y93.E6 Activity, residential relocation; M54.32 Sciatica, left side; I10 Essential (primary) hypertension; J45.909 Unspecified asthma, uncomplicated; Z79.899 Other long term (current) drug therapy; Z88.5 Allergy status to narcotic agent; Z88.8 Allergy status to other drugs, medicaments and biological substances; Z91.030 Bee allergy status